=== PATIENT | male | born 1965 | race Caucasian/White ===

== ENCOUNTER 2016-06-17 00:29 | Emergency (ER) | payer OTHER ==
--- NOTE | 2016-06-17 02:32 | ED ORDER SUMMARY ---
..... Patient: EMILY GRIFFIN OrderSheet [facility] VisitID: [id number] [place] [address] 51y, M Registration Date/Time: 06/17/2016 ORDER SHEET Weight: 96.1 kg (stated) Allergies: No Known Drug Allergy GENERAL ORDERS: CT Abd/Pel wo Cont Urgent (01:06/17/2016 Kandis Franklin) (Ack 1:11 AMcQuoid ER Tech1) (1:35 RFay) CBC w Diff Urgent (:06/17/2016 Kandis Franklin) (Ack 1:11 AMcQuoid ER Tech1) (1:22 HSoule) CMP Urgent (:06/17/2016 Kandis Franklin) (Ack 1:11 AMcQuoid ER Tech1) (1:22 HSoule) UA-Culture if indicated Urgent (:06/17/2016 Kandis Franklin) (Ack 1:11 AMcQuoid ER Tech1) (1:22 HSoule) Lipase Urgent (:06/17/2016 Kandis Franklin) (Ack 1:11 AMcQuoid ER Tech1) (1:22 HSoule) Pulse oximeter (:06/17/2016 Kandis Franklin) (Ack 1:11 AMcQuoid ER Tech1) (1:22 HSoule) MEDICATION ORDERS: IV FLUIDS: IV NS : initial bolus 1000 mL (1000 mL/hr), then none - for X1 (NOW) (01:06/17/2016 Kandis Franklin) (Ack 1:10 Vinny R.N.) (1:21 HSoule) Zofran IV 4 mg (NOW) (:06/17/2016 Kandis Franklin) (Ack 1:10 Vinny R.N.) (1:21 HSoule) Morphine IV 4 mg (HIGH ALERT MEDICATION, NOW) (01:08 06/17/2016 Kandis Franklin) (Ack 1:10 Vinny R.N.) (1:21 HSoule) Toradol IV 30 mg (NOW) (01:49 06/17/2016 Kandis Franklin) (2:00 HSoule) ORDER SHEET NOTES: [Electronically signed by Seb Geronimo R.N. (02:40 06/17/2016)] [Electronically signed by Rivera Mac Dr. (09:35 06/23/2016)] [Electronically locked/signed by Seb Geronimo R.N. (02:40 06/17/2016)]
--- NOTE | 2016-06-17 02:32 | ED CLINICAL REPORT ---
Clinical Report - Physicians/Mid Levels [facility] [address] [place] [address] 06/17/2016 0:29 Patient: EMILY GRIFFIN Time Seen: 0100. Arrived- By private vehicle. Historian- patient. HISTORY OF PRESENT ILLNESS Chief Complaint: FLANK PAIN and right. At its maximum, severity described as moderate. When seen in the E.D., severity described as moderate. Modifying factors- worsened by movement. Relieved by rest. It is described as sharp and it is described as located in the right flank and the right lower quadrant. This started past day or two; + hematuria and dysuria and is still present and worsening. It was abrupt in onset and has been intermittent but is not gone now. The patient has had nausea and vomiting. No loss of appetite or diarrhea. No recent travel. Similar symptoms previously: (once or twice. states he thinks they were kidney stones but not totally sure). Recent medical care: Not recently seen/assessed. REVIEW OF SYSTEMS No fever, chest pain or difficulty breathing. All systems otherwise negative, except as recorded above. PAST HISTORY See nurses notes. Medications: Gabapentin Oral (Capsule 300 mg) 1 capsule, 2x a day. Allergies: No Known Drug Allergy. SOCIAL HISTORY Never smoker. No alcohol use or drug use. No recent travel. Is a local resident. FAMILY HISTORY (no known family hx of abdominal problems.). ADDITIONAL NOTES The nursing notes have been reviewed. PHYSICAL EXAM Vital Signs: 06/17/2016 00:37 BP: 137/88. HR: 66. RR: 20. O2 saturation: 100%. Temp: 97.6 F. Pain level now: 10/10. Blood pressure normal. Oxygen saturation normal. Appearance: Alert. Oriented X3. No acute distress. CVS: Normal heart rate and rhythm. Heart sounds normal. Pulses normal. Respiratory: No respiratory distress. Breath sounds normal. Chest nontender. Abdomen: Soft and nontender. Bowel sounds normal. (negative mario's. no tenderness at mcburney's.). Back: Mild CVA tenderness on the right. Skin: Skin warm and dry. Normal skin color. No rash. Normal skin turgor. Extremities: Extremities exhibit normal ROM. No lower extremity edema. LABS, X-RAYS, AND EKG Abdominal CT: right hydro with 5 mm stone at the UVJ. No other acute abnormalities. Study type: abdomen and pelvis. Abdominal CT performed without contrast. The study was independently viewed by me and interpreted by the radiologist. The study was discussed with the radiologist (via fax). Laboratory Tests: UA-Culture if indicated: (MOISÉS: 06/17/2016 01:00) ( MsgRcvd 06/17/2016 01:36) Final results Test Result Flag Units (Reference) URINE COLOR YELLOW URINE APPEARANCE SL CLOUDY URINE GLUCOSE NEGATIVE (NEGATIVE) URINE BILIRUBIN NEGATIVE (NEGATIVE) URINE KETONE NEGATIVE (NEGATIVE) URINE SPECIFIC GRAVITY >= 1.030 (1.010-1.030) URINE PH 6.0 (5.0-8.0) URINE PROTEIN 2+ (NEGATIVE) URINE UROBILINOGEN 1.0 EU/dL (0.2-1.0) URINE NITRITE NEGATIVE (NEGATIVE) URINE BLOOD 3+ (NEGATIVE) URINE LEUK ESTERASE NEGATIVE (NEGATIVE) URINE RBC 75-100 rbc/hpf (0-1) URINE WBC 0-1 wbc/hpf (0-1) URINE EPITHELIAL CELLS 0-1 EPI/hpf (0-5) URINE BACTERIA NONE SEEN (NONE SEEN) URINE COMMENT CULT NOT INDICATED URINE CULTURES ARE SET-UP BASED ON THE FOLLOWING CRITERIA:POSITIVE NITRITEPOSITIVE LEUKOCYTE ESTERASEGREATER THAN 10 WHITE BLOOD CELLSMODERATE (2+) OR GREATER BACTERIA CBC w Diff: (MOISÉS: 06/17/2016 00:45) ( WygRcvd 06/17/2016 01:38) Final results Test Result Flag Units (Reference) WHITE BLOOD COUNT 9.1 K/uL (4.5-11.5) RED BLOOD COUNT 5.43 M/uL (4.50-5.90) HEMOGLOBIN 16.4 gm/dL (13.5-17.5) HEMATOCRIT 48.8 % (41.0-53.0) MEAN CELL VOLUME 90 fL (80-100) MEAN CORPUSCULAR HGB 30 pg (26-34) MEAN CORPUSCULAR HGB CONC 34 g/dL (31-37) RED CELL DISTRIBUTION WIDTH 12.3 % (11.6-14.8) NEUTROPHIL % 67.6 % (50-75) LYMPH % 22.2 L % (25-40) MONO % 4.6 % (3-14) EOSINOPHIL % 4.9 H % (0-4) BASOPHIL % 0.7 % (0-2) CMP: (MOISÉS: 06/17/2016 00:45) ( MsgRcvd 06/17/2016 01:46) Final results Test Result Flag Units (Reference) GLUCOSE 113 H mg/dL (70-110) BUN 16 mg/dL (7-18) CREATININE 1.1 mg/dL (0.6-1.3) Estimated GFR >60 mL/min Estimated GFR- >60 mL/min Note: Persistent reduction over 3 months in eGFR<60 mL/min/1.73 m2 defines CKD. Patients with eGFR values>=60 mL/min/1.73 m2 may also have CKD if evidence ofpersistent proteinuria. Additional information may be foundat www.[email or web address].org. SODIUM 142 mmol/L (136-145) CHLORIDE 106 mmol/L (98-107) CARBON DIOXIDE 29 mmol/L (21-32) TOTAL PROTEIN 7.6 g/dL (6.4-8.2) ALBUMIN 3.9 g/dL (3.3-5.0) BILIRUBIN, TOTAL 0.9 mg/dL (0.0-1.0) ALKALINE PHOSPHATASE 115 U/L (46-116) ALT (SGPT) 52 U/L (12-78) LIPASE 137 U/L (73-393) . PROGRESS AND PROCEDURES Course of Care: The patient is a pleasant 51 yo male with no pertinent past medical history. Differential diagnosis includes stone, pyelo, or acute appy. stone favored given urinary symptoms. Patient agreeable to work up. Patient with no other findings on exam or history. UA + for blood. No UTI. CT shows stone at the UVJ. Pain controlled. Good change of passing spontaneously given location and size. Patient reevaluated and sleeping no acute distress. Discussed with patient and significant other work up, diagnosis, home care, follow up, and return precautions. Recommended speaking with his PCP for urology follow up. DO not fee patient needs to be admitted or require further ED work up/evaluation or admission. CLINICAL IMPRESSION Acute right lower quadrant abdominal pain. 06/17/2016 02:00 BP: 104/68. HR: 57. RR: 20. O2 saturation: 94%. Pain level now: 0/10. Gross hematuria (acute). Blood pressure normal. Oxygen saturation normal. Ureterolithiasis (single stone) in the right ureter. INSTRUCTIONS Warnings: GENERAL WARNINGS: Return or contact your physician immediately if your condition worsens or changes unexpectedly, if not improving as expected, or if other problems arise. SPECIFICALLY, return if you develop pain, fever, vomiting, the inability to keep fluids down, blood in vomitus, blood in diarrhea, fainting or lightheadedness. Your Current Medications: CONTINUE TAKING THE FOLLOWING MEDICATIONS: Gabapentin Oral : Capsule 300 mg, 1 capsule 2x a day. Prescription Medications: Zofran ODT 4 mg: take 1 orally every 8 hours as needed for nausea and vomiting. Dispense ten (10). No refill. Substitution is permissible. Percocet 5 mg/325 mg: take 1 tablet orally every 6 hours as needed for pain. Dispense twenty (20). No refill. Substitution is permissible. Follow-up: Return to the emergency department as needed. Follow up with your doctor in three days. Reason for referral: recheck today's concerns. Summary of care provided to patient via paper. Screening today revealed the patient's blood pressure to be in the normal range. The patient should follow up with a primary care provider for blood pressure management. Understanding of the discharge instructions verbalized by patient. (Electronically signed by Rivera Mac Dr. 06/23/2016 9:35)
--- NOTE | 2016-06-17 02:32 | ED ORDER SUMMARY ---
..... Patient: EMILY GRIFFIN OrderSheet [facility] VisitID: [id number] [place] [address] 51y, M Registration Date/Time: 06/17/2016 ORDER SHEET Weight: 96.1 kg (stated) Allergies: No Known Drug Allergy GENERAL ORDERS: CT Abd/Pel wo Cont Urgent (01:06/17/2016 Kandis Franklin) (Ack 1:11 AMcQuoid ER Tech1) (1:35 RFay) CBC w Diff Urgent (:06/17/2016 Kandis Franklin) (Ack 1:11 AMcQuoid ER Tech1) (1:22 HSoule) CMP Urgent (:06/17/2016 Kandis Franklin) (Ack 1:11 AMcQuoid ER Tech1) (1:22 HSoule) UA-Culture if indicated Urgent (:06/17/2016 Kandis Franklin) (Ack 1:11 AMcQuoid ER Tech1) (1:22 HSoule) Lipase Urgent (:06/17/2016 Kandis Franklin) (Ack 1:11 AMcQuoid ER Tech1) (1:22 HSoule) Pulse oximeter (:06/17/2016 Kandis Franklin) (Ack 1:11 AMcQuoid ER Tech1) (1:22 HSoule) MEDICATION ORDERS: IV FLUIDS: IV NS : initial bolus 1000 mL (1000 mL/hr), then none - for X1 (NOW) (01:06/17/2016 Kandis Franklin) (Ack 1:10 Vinny R.N.) (1:21 HSoule) Zofran IV 4 mg (NOW) (:06/17/2016 Kandis Franklin) (Ack 1:10 Vinny R.N.) (1:21 HSoule) Morphine IV 4 mg (HIGH ALERT MEDICATION, NOW) (01:08 06/17/2016 Kandis Franklin) (Ack 1:10 Vinny R.N.) (1:21 HSoule) Toradol IV 30 mg (NOW) (01:49 06/17/2016 Kandis Franklin) (2:00 HSoule) ORDER SHEET NOTES: [Electronically signed by Seb Geronimo R.N. (02:40 06/17/2016)] [Electronically signed by Rivera Mac Dr. (09:35 06/23/2016)] [Electronically locked/signed by Seb Geronimo R.N. (02:40 06/17/2016)]
--- NOTE | 2016-06-17 02:32 | ED NURSING NOTES ---
Clinical Report - Nurses [facility] [address] [place] [address] 06/17/2016 0:29 Patient: EMILY GRIFFIN TRIAGE Triage time 00:37 Jun 17 2016. Acuity: LEVEL 3. Chief Complaint: PAIN WITH URINATION and (right lower quadrant pain). 00:42 06/17/16. SEPSIS SCREEN: Sepsis Screen: negative. Negative (no infection suspected/documented). HIRAL COMA SCORE: [place] Coma Scale: 15- eyes open spontaneously (4); best verbal response- oriented x 4 (5); best motor response- obeys commands (6). --00:42 Nhung Glass 00:37 06/17/16. BP: 137/88. HR: 66. RR: 20. O2 saturation: 100%. Temp: 97.6 F (oral). Pain level now: 12/31. --00:42 Nhung Glass. Weight: 96.1 kg stated. Height/Length: 71 inches Per Patient. BMI: 29.6. --00:38 Nhung Glass. Medications Gabapentin Oral (Capsule 300 mg) 1 capsule, 2x a day. --00:39 Nhung Glass. Allergies No Known Drug Allergy. --00:40 Nhung Glass. Medication/allergy information source: the patient. --00:42 Nhung Glass. History Arrived by private vehicle. Historian: patient. Accompanied by friend. This started just prior to arrival. ( Patient reports pain that started in his RLQ about ten PM. He reports pain with urination and minimal output. He reports blood in his urine. He denies any history of kidney stones.). PAST MEDICAL HX: Immunizations: up-to-date. SOCIAL HX: Never smoker. No alcohol use or drug use. No infectious disease exposure. ABUSE ASSESSMENT: No report of abuse. FALL RISK ASSESSMENT: Fall risk assessment completed. No fall risk identified. NUTRITIONAL RISK ASSESSMENT: The nutritional risk assessment revealed no deficiencies. FUNCTIONAL ASSESSMENT: Functional assessment: no impairments noted. LEARNING NEEDS ASSESSMENT: The learning needs assessment revealed no barriers. SKIN INTEGRITY ASSESSMENT: Skin integrity risk assessment completed. No skin integrity risk identified. --00:42 Nhung Glass. PROBLEMS: Contact Dermatitis. Immunizations. Depression. Prior Injury, Same Area. Muscle Strain, Upper Extremity. --00:40 Nhung Glass. ADDITIONAL SURGERIES: Shoulder Surgery. --00:40 Nhung Glass. Interventions ID band on patient. To treatment room. --00:42 Nhung Glass. PHYSICAL ASSESSMENT Ambulatory to room. Patient gowned. GENERAL / NEURO / PSYCH: Alert. Oriented X 4. Appears in pain. HEENT: Mucous membranes are pink. RESPIRATORY: Respirations not labored. CVS: Normal heart rate and rhythm. GI / : Abdomen soft. Abdominal tenderness in the right lower quadrant. SKIN: Skin is warm and dry. --00:42 Nhung Glass. NURSING PROGRESS NOTES Pulse oximeter and NIBP monitor placed on patient. Patient gowned. Warming measures: blanket applied. Reassurance given to the patient. Two patient identifiers checked. Call light placed in reach. Side rails up x 1. Bed placed in lowest position. Brakes of bed on. Patient ready for evaluation- chart flagged and ED physician notified. --00:43 Maria Luisa Nhung Patient ID band checked for patient name and birthdate: patient confirmed. Instructions provided to collect clean catch urine and patient verbalized understanding. Clean catch urine collected with return of red-colored clear urine; sample sent to lab for urinalysis and culture. Specimen labeled in the presence of the patient. --00:54 Nhung Glass 01:06 06/17/2016 Site #1 started via IV in the right antecubital space with an 20g angiocath, with aseptic technique and good blood return; one attempt. Blood drawn: rainbow set. Labeled in the presence of the patient and sent to the lab. Saline lock flushed with 10 mL saline (Started by Rj Gomez). --01:21 Nhung Glass 01:21 06/17/2016 Zofran (Ondansetron HCl) IVP 4 mg given over 1 minute(s) via site #1. Allergies verified and confirmed 5 rights. IV patency established. IV site checked: no pain, redness, or swelling. IV flushed thoroughly pre- and post-medication administration. IVP given by RN. --01: Nhung Glass 01:06/17/2016 Morphine IVP 4 mg given over 1 minute(s) via site #1. Allergies verified, confirmed 5 rights and sedative warning given to the patient and patient's family. IV patency established. IV site checked: no pain, redness, or swelling. IV flushed thoroughly pre- and post-medication administration. IVP given by RN. --: Nhung Glass 01:06/17/2016 Started bag #1 1000 mL IV Fluids IV NS (Saline); at 1000 mL/hr over 1 hour(s) via site #1. Allergies verified and confirmed 5 rights. IV patency established. IV site checked: no pain, redness, or swelling. IV flushed thoroughly pre- and post-medication administration. --: Nhung Glass 01:22 06/17/16. BP: 119/79. HR: 57. RR: 20. O2 saturation: 98% on room air. Pain level now: 2/10. --01:22 Nhung Glass 01:28. Patient transported to CT by stretcher with tech. --01:28 McQuoid, Mariela, ER Tech1 Patient transported to CT by stretcher with tech. (:Jun 17 2016). --01:28 Nhung Glass Patient returned from CT by stretcher with tech. (:Jun 17 2016). --01:34 Nhung Glass 02:00 06/17/2016 Toradol IVP 30 mg given over 1 minute(s) via site #1. Allergies verified and confirmed 5 rights. IV patency established. IV site checked: no pain, redness, or swelling. IV flushed thoroughly pre- and post-medication administration. IVP given by RN. --02:00 Nhung Glass 02:00 06/17/16. BP: 104/68. HR: 57. RR: 20. O2 saturation: 94% on room air. Pain level now: 0/10. --02:01 Nhung Glass. DISPOSITION / DISCHARGE 02:37 06/17/2016 Site #1 removed upon discharge. Catheter intact. Bandaid applied. --02:37 Seb Geronimo R.N. Departure time: 02:39. Condition at departure: improved. ( Pt has improved pain control. Pt was sleeping when first entered the room.). No learning barriers present. Discharge instructions provided and reviewed with the patient. Reviewed medication(s) side effects, precautions, dosing and course information. Prescription(s) given to the patient (Percocet zofran). Work note given (2 days). ( Pt was given a strainer and specimen cup. Pt was told not to go to work today.). The patient was discharged home and accompanied by spouse. He left the Emergency Department ambulatory and via private vehicle. Spouse driving. HIRAL COMA SCORE: Hiral Coma Scale: 15- eyes open spontaneously (4); best verbal response- oriented x 4 (5); best motor response- obeys commands (6). --02:39 Seb Geronimo R.N. 02:37 06/17/16. BP: 104/72. HR: 57. RR: 15. O2 saturation: 94%. Pain level now 0/10. --02:39 Seb Geronimo R.N. Locked/Released at 06/17/2016 2:40 by Seb Geronimo R.N.
--- NOTE | 2016-06-17 07:59 | DIAGNOSTIC IMAGING REPORT ---
PROCEDURE: CT ABDOMEN/PELVIS W/O CONTRAST INDICATION: Right-sided pain and hematuria. Initial encounter. TECHNIQUE: Noncontrast axial images were obtained of the entire abdomen and pelvis with sagittal and coronal reformations. COMPARISON: None. FINDINGS: ABDOMEN: 3.5 mm right UVJ calculus with mild right hydroureteronephrosis. Liver, gallbladder, pancreas, spleen, adrenal glands and left kidney are normal. Normal abdominal aorta. Nonspecific bowel gas pattern. Cecum located in the left mid abdomen. Lung bases are clear. Heart size is normal. PELVIS: Appendix not visualized. No pelvic mass, inflammatory changes or free fluid. Bones are unremarkable. IMPRESSION: 1. 3.5 mm right UVJ calculus with mild right hydroureteronephrosis 2. Preliminary results submitted by Dr. Fortune, [facility] radiology. All CT scans at this facility use dose modulation, iterative reconstruction, and/or weight-based dosing when appropriate to reduce radiation dose to as low as reasonably achievable.
--- NOTE | 2016-06-17 07:59 | DIAGNOSTIC IMAGING REPORT ---
PROCEDURE: CT ABDOMEN/PELVIS W/O CONTRAST INDICATION: Right-sided pain and hematuria. Initial encounter. TECHNIQUE: Noncontrast axial images were obtained of the entire abdomen and pelvis with sagittal and coronal reformations. COMPARISON: None. FINDINGS: ABDOMEN: 3.5 mm right UVJ calculus with mild right hydroureteronephrosis. Liver, gallbladder, pancreas, spleen, adrenal glands and left kidney are normal. Normal abdominal aorta. Nonspecific bowel gas pattern. Cecum located in the left mid abdomen. Lung bases are clear. Heart size is normal. PELVIS: Appendix not visualized. No pelvic mass, inflammatory changes or free fluid. Bones are unremarkable. IMPRESSION: 1. 3.5 mm right UVJ calculus with mild right hydroureteronephrosis 2. Preliminary results submitted by Dr. Fortune, [facility] radiology. All CT scans at this facility use dose modulation, iterative reconstruction, and/or weight-based dosing when appropriate to reduce radiation dose to as low as reasonably achievable.
--- NOTE | 2016-06-23 09:35 | ED MAR SUMMARY ---
..... Medication Administration Record [facility] [address] [place] [address] Patient: EMILY GRIFFIN Visit ID: [id number] 51y, M Weight: 96.1 kg Height/Length: 71 in BMI: 29.6 ALLERGIES: No Known Drug Allergy Start 01:06/17/2016 Nhung Glass, Medication Administered: IV NS (SALINE), Dose: IV Fluids over 1 hour(s), Rate: 1000 mL/hr, Dispensed: 1000 mL bag, Site: #1 right AC. Medication Ordered: IV NS : initial bolus 1000 mL (1000 mL/hr), then none - for X1 (NOW). Given 06/17/2016 Nhung Glass, Medication Administered: ZOFRAN [IVP] (ONDANSETRON HCL), Dose: 4 mg IVP over 1 minute(s), Site: #1 right AC. Medication Ordered: Zofran IV 4 mg (NOW). Given 06/17/2016 Nhung Glass, Medication Administered: MORPHINE [IVP], Dose: 4 mg IVP over 1 minute(s), Site: #1 right AC. Medication Ordered: Morphine IV 4 mg (HIGH ALERT MEDICATION, NOW). Given 02:00 06/17/2016 Nhung Glass, Medication Administered: TORADOL [IVP], Dose: 30 mg IVP over 1 minute(s), Site: #1 right AC. Medication Ordered: Toradol IV 30 mg (NOW).
--- NOTE | 2016-06-23 09:35 | ED MAR SUMMARY ---
..... Medication Administration Record [facility] [address] [place] [address] Patient: EMILY GRIFFIN Visit ID: [id number] 51y, M Weight: 96.1 kg Height/Length: 71 in BMI: 29.6 ALLERGIES: No Known Drug Allergy Start 01:06/17/2016 Nhung Glass, Medication Administered: IV NS (SALINE), Dose: IV Fluids over 1 hour(s), Rate: 1000 mL/hr, Dispensed: 1000 mL bag, Site: #1 right AC. Medication Ordered: IV NS : initial bolus 1000 mL (1000 mL/hr), then none - for X1 (NOW). Given 06/17/2016 Nhung Glass, Medication Administered: ZOFRAN [IVP] (ONDANSETRON HCL), Dose: 4 mg IVP over 1 minute(s), Site: #1 right AC. Medication Ordered: Zofran IV 4 mg (NOW). Given 06/17/2016 Nhung Glass, Medication Administered: MORPHINE [IVP], Dose: 4 mg IVP over 1 minute(s), Site: #1 right AC. Medication Ordered: Morphine IV 4 mg (HIGH ALERT MEDICATION, NOW). Given 02:00 06/17/2016 Nhung Glass, Medication Administered: TORADOL [IVP], Dose: 30 mg IVP over 1 minute(s), Site: #1 right AC. Medication Ordered: Toradol IV 30 mg (NOW).
--- NOTE | 2016-06-23 09:35 | ED DISCHARGE INSTRUCTIONS ---
Patient: EMILY GRIFFIN General Instructions [facility] VisitID: [id number] [place] [address] 51y, M Registration Date/Time: 06/17/2016 Acute right lower quadrant abdominal pain. 06/17/2016 02:00 BP: 104/68. HR: 57. RR: 20. O2 saturation: 94%. Pain level now: 0/10. Gross hematuria (acute). Blood pressure normal. Oxygen saturation normal. Ureterolithiasis (single stone) in the right ureter. INSTRUCTIONS Warnings: GENERAL WARNINGS: Return or contact your physician immediately if your condition worsens or changes unexpectedly, if not improving as expected, or if other problems arise. SPECIFICALLY, return if you develop pain, fever, vomiting, the inability to keep fluids down, blood in vomitus, blood in diarrhea, fainting or lightheadedness. Your Current Medications: CONTINUE TAKING THE FOLLOWING MEDICATIONS: Gabapentin Oral : Capsule 300 mg, 1 capsule 2x a day. Prescription Medications: Zofran ODT 4 mg: take 1 orally every 8 hours as needed for nausea and vomiting. Dispense ten (10). No refill. Substitution is permissible. Percocet 5 mg/325 mg: take 1 tablet orally every 6 hours as needed for pain. Dispense twenty (20). No refill. Substitution is permissible. Follow-up: Return to the emergency department as needed. Follow up with your doctor in three days. Reason for referral: recheck today's concerns. Summary of care provided to patient via paper. Screening today revealed the patient's blood pressure to be in the normal range. The patient should follow up with a primary care provider for blood pressure management. Understanding of the discharge instructions verbalized by patient. ADDITIONAL INFORMATION Abdominal Pain,Uncertain Cause [Male] Based on your visit today, the exact cause of your abdominalpain is not clear. Your exam and tests do not indicate a dangerous cause at this time. However, the signs of a serious problem may take more time to appear. Although your evaluation was reassuring today, sometimes early in the course of many conditions, exam and lab tests can appear normal. Therefore, it is important for you to watch for any new symptoms or worsening of your condition. Causes It may not be obvious what caused your symptoms. Pay attention to things that do seem to make your symptoms worse or better and discuss this with your doctor when you follow up. Diagnosis The evaluation of abdominal pain in the emergency department may onlyrequire an exam by the doctor or it may include blood, urine or imaging studies, depending on many factors. Sometimes exams and tests can identify a cause but in many cases, a clear cause is not found. Further testing at follow up visits may help to suggest a clear diagnosis. Home Care Rest as much as possible until your next exam. Try to avoid any medications (unless otherwise directed by your doctor), foods, activities, or other factors that you may have contributed to your symptoms. Try to eat foods that you know that you have tolerated well in the past. Certain diets may be recommended for some conditions that cause abdominal pain. However, since the cause of your symptoms may not be clear, discuss your diet more with your primary care provider or specialist for further recommendations. Eating several small meals per day as opposed to 2 or 3 larger meals may help. Monitor closely for anything that may make your symptoms worse or better. Pay close attention to symptoms below that may indicate worsening of your condition. Follow Up and Precautions See your doctoras instructed or sooneror if your symptoms are not improving.In some cases, you may need more testing. When to Seek Medical Attention Contact your doctor or see medical attention ifany of the following occur: Pain is becoming worse You are unable to take your medications due to excessive vomiting Swelling of the abdomen Fever of 100.4F (38C) or higher, or as directed by your health care provider Blood in vomit or bowel movements (dark red or black color) Jaundice (yellow color of eyes and skin) New onset of weakness, dizziness or fainting New onset of chest, arm, back, neck or jaw pain Abdominal Pain, Possible Appendicitis, Repeat Exam, Male Based on your visit today, the exact cause of your abdominal (stomach) pain is not certain. However, you do have some of the early signs of appendicitis. Early in an appendix infection the symptoms can be similar to a simple "stomach ache" or "stomach flu". Therefore, the diagnosis can be hard to make.Since an appendix infection is a serious condition, it is important to know if this is the cause of your symptoms. WAITING for more time to pass and repeating the exam is the best way to find out whether you have appendicitis. Within the next 12-24 hours the cause of your stomach pain should become clear. It is important for you to watch for any new symptoms or worsening of your condition.(See below). Home Care: Rest until your next exam. No strenuous activities. Eat a diet low in fiber (called a low-residue diet). Foods allowed include refined breads, white rice, fruit and vegetable juices without pulp, tender meats. These foods will pass more easily through the intestine. Avoid whole-grain foods, whole fruits and vegetables, meats, seeds and nuts, fried or fatty foods, dairy, alcohol and spicy foods until your symptoms go away. In some cases, you may be asked not to eat or drink anything until you are re-examined. Return for another exam exactly as directed. Follow Up with your doctor or this facility as directed. [NOTE: If you had an X-ray, CT scan, ultrasound, or EKG (cardiogram), it will be reviewed by a specialist. You will be notified of any new findings that may affect your care.] Return Promptly before your next appointment or contact your doctor if any of the following occur: Pain gets worse or moves to the right lower abdomen New or worsening vomiting or diarrhea Swelling of the abdomen Unable to pass stool for more than three days New fever over 100.4 F (38.0 C), or rising fever Blood in vomit or bowel movements (dark red or black color) Weakness, dizziness or fainting Blood In The Urine Blood in the urine ("hematuria") has many possible causes. If it occurs after an injury (such as a car accident or fall), it is most often a sign of bruising to the kidney or bladder. Common medical causes of blood in the urine include urinary tract infection, kidney stone, inflammation, tumors, or certain other diseases of the kidney or bladder. Menstruation can cause blood to appear in the urine sample, although it is not coming from the urinary tract. If only a trace amount of blood is present, it will show up on the urine test, even though the urine may be yellow and not pink or red. This may occur with any of the above conditions, as well as heavy exercise or high fever. In this case, your doctor may want to repeat the urine test on another day. This will show if the blood is still present. If so, then other tests can be done to find out the cause. Home Care: If your urine does not appear bloody (pink, brown or red) then you do not need to restrict your activity in any way. If you can see blood in your urine, rest and avoid heavy exertion until your next exam. Do not use aspirin or anti-inflammatory medicine like ibuprofen (Motrin, Advil) or naproxen (Naprosyn, Aleve). These thin the blood and may increase bleeding. Follow Up with your doctor or as advised by our staff. If you were injured and had blood in your urine, you should have a repeat urine test in 1-2 days. Contact your doctor or return to this facility for this test. [NOTE: A radiologist will review any X-rays that were taken. We will notify you of any new findings that may affect your care.] Get Prompt Medical Attention if any of the following occur: Bright red blood or blood clots in the urine (if a new symptom) Weakness, dizziness or fainting New groin, abdominal or back pain Fever of 100.4F (38C) or higher, or as directed by your healthcare provider Repeated vomiting Bleeding from nose, gums or easy bruising Ondansetron Oral disintegrating tablet What is this medicine? ONDANSETRON (on JERSON se mo) is used to treat nausea and vomiting caused by chemotherapy. It is also used to prevent or treat nausea and vomiting after surgery. How should I use this medicine? These tablets are made to dissolve in the mouth. Do not try to push the tablet through the foil backing. With dry hands, peel away the foil backing and gently remove the tablet. Place the tablet in the mouth and allow it to dissolve, then swallow. While you may take these tablets with water, it is not necessary to do so. Talk to your shuttle buggy operator regarding the use of this medicine in children. Special care may be needed. What side effects may I notice from receiving this medicine? Side effects that you should report to your doctor or health early breastfeeding care specialist as soon as possible: allergic reactions like skin rash, itching or hives, swelling of the face, lips, or tongue breathing problems dizziness fast or irregular heartbeat feeling faint or lightheaded, falls fever and chills swelling of the hands and feet tightness in the chest Side effects that usually do not require medical attention (report to your doctor or health early breastfeeding care specialist if they continue or are bothersome): constipation or diarrhea headache What may interact with this medicine? Do not take this medicine with any of the following medications: -apomorphine -cisapride -dofetilide -dronedarone -pimozide -thioridazine -ziprasidone This medicine may also interact with the following medications: -carbamazepine -phenytoin -rifampicin -tramadol -other medicines that prolong the QT interval (cause an abnormal heart rhythm) What if I miss a dose? If you miss a dose, take it as soon as you can. If it is almost time for your next dose, take only that dose. Do not take double or extra doses. Where should I keep my medicine? Keep out of the reach of children. Store between 2 and 30 degrees C (36 and 86 degrees F). Throw away any unused medicine after the expiration date. What should I tell my health care provider before I take this medicine? They need to know if you have any of these conditions: heart disease history of irregular heartbeat liver disease low levels of magnesium or potassium in the blood an unusual or allergic reaction to ondansetron, granisetron, other medicines, foods, dyes, or preservatives or trying to get breast-feeding What should I watch for while using this medicine? Check with your doctor or health early breastfeeding care specialist as soon as you can if you have any sign of an allergic reaction. Oxycodone Hydrochloride, Acetaminophen Oral tablet What is this medicine? ACETAMINOPHEN; OXYCODONE (a set a MAL annabella fen; ox i KOE done) is a pain reliever. It is used to treat mild to moderate pain. How should I use this medicine? Take this medicine by mouth with a full glass of water. Follow the directions on the prescription label. Take your medicine at regular intervals. Do not take your medicine more often than directed. Talk to your shuttle buggy operator regarding the use of this medicine in children. Special care may be needed. Patients over 65 years old may have a stronger reaction and need a smaller dose. What side effects may I notice from receiving this medicine? Side effects that you should report to your doctor or health early breastfeeding care specialist as soon as possible: allergic reactions like skin rash, itching or hives, swelling of the face, lips, or tongue breathing difficulties, wheezing confusion light headedness or fainting spells severe stomach pain yellowing of the skin or the whites of the eyes Side effects that usually do not require medical attention (report to your doctor or health early breastfeeding care specialist if they continue or are bothersome): dizziness drowsiness nausea vomiting What may interact with this medicine? alcohol antihistamines barbiturates like amobarbital, butalbital, butabarbital, methohexital, pentobarbital, phenobarbital, thiopental, and secobarbital benztropine drugs for bladder problems like solifenacin, trospium, oxybutynin, tolterodine, hyoscyamine, and methscopolamine drugs for breathing problems like ipratropium and tiotropium drugs for certain stomach or intestine problems like propantheline, homatropine methylbromide, glycopyrrolate, atropine, belladonna, and dicyclomine general anesthetics like etomidate, ketamine, nitrous oxide, propofol, desflurane, enflurane, halothane, isoflurane, and sevoflurane medicines for depression, anxiety, or psychotic disturbances medicines for sleep muscle relaxants naltrexone narcotic medicines (opiates) for pain phenothiazines like perphenazine, thioridazine, chlorpromazine, mesoridazine, fluphenazine, prochlorperazine, promazine, and trifluoperazine scopolamine tramadol trihexyphenidyl What if I miss a dose? If you miss a dose, take it as soon as you can. If it is almost time for your next dose, take only that dose. Do not take double or extra doses. Where should I keep my medicine? Keep out of the reach of children. This medicine can be abused. Keep your medicine in a safe place to protect it from theft. Do not share this medicine with anyone. Selling or giving away this medicine is dangerous and against the law. Store at room temperature between 20 and 25 degrees C (68 and 77 degrees F). Keep container tightly closed. Protect from light. This medicine may cause accidental overdose and if it is taken by other adults, children, or pets. Flush any unused medicine down the toilet to reduce the chance of harm. Do not use the medicine after the expiration date. What should I tell my health care provider before I take this medicine? They need to know if you have any of these conditions: brain tumor Crohn's disease, inflammatory bowel disease, or ulcerative colitis drink more than 3 alcohol containing drinks per day drug abuse or addiction head injury heart or circulation problems kidney disease or problems going to the bathroom liver disease lung disease, asthma, or breathing problems an unusual or allergic reaction to acetaminophen, oxycodone, other opioid analgesics, other medicines, foods, dyes, or preservatives or trying to get breast-feeding What should I watch for while using this medicine? Tell your doctor or health early breastfeeding care specialist if your pain does not go away, if it gets worse, or if you have new or a different type of pain. You may develop tolerance to the medicine. Tolerance means that you will need a higher dose of the medication for pain relief. Tolerance is normal and is expected if you take this medicine for a long time. Do not suddenly stop taking your medicine because you may develop a severe reaction. Your body becomes used to the medicine. This does NOT mean you are addicted. Addiction is a behavior related to getting and using a drug for a non-medical reason. If you have pain, you have a medical reason to take pain medicine. Your doctor will tell you how much medicine to take. If your doctor wants you to stop the medicine, the dose will be slowly lowered over time to avoid any side effects. You may get drowsy or dizzy. Do not drive, use machinery, or do anything that needs mental alertness until you know how this medicine affects you. Do not stand or sit up quickly, especially if you are an older patient. This reduces the risk of dizzy or fainting spells. Alcohol may interfere with the effect of this medicine. Avoid alcoholic drinks. There are different types of narcotic medicines (opiates) for pain. If you take more than one type at the same time, you may have more side effects. Give your health care provider a list of all medicines you use. Your doctor will tell you how much medicine to take. Do not take more medicine than directed. Call emergency for help if you have problems breathing. The medicine will cause constipation. Try to have a bowel movement at least every 2 to 3 days. If you do not have a bowel movement for 3 days, call your doctor or health early breastfeeding care specialist. Do not take Tylenol (acetaminophen) or medicines that have acetaminophen with this medicine. Too much acetaminophen can be very dangerous. Many nonprescription medicines contain acetaminophen. Always read the labels carefully to avoid taking more acetaminophen. You have been given the following additional information: Abdominal Pain, Unknown Cause, (Male) Abdominal Pain, Possible Appendicitis [Male] Hematuria Ondansetron Oral disintegrating tablet Oxycodone Hydrochloride, Acetaminophen Oral tablet (Electronically signed by Rivera Mac Dr. 06/23/2016 9:35)
--- NOTE | 2016-06-23 09:35 | ED MED RECONCILIATION SUMMARY ---
Patient: EMILY GRIFFIN Medication Reconciliation Report [facility] VisitID: [id number] [address] [place] [address] 51y, M Registration Date/Time: 06/17/2016 Weight: 96.1 kg Height/Length: 71 in. BMI: 29.6 ALLERGIES: No Known Drug Allergy The patient's Home Medications are listed below: CONTINUE TAKING THE FOLLOWING MEDICATIONS: Gabapentin Oral (300 mg) 1 capsule, 2x a day The source(s) of the original Home Medication information: patient The following Medications were given to the patient in the Emergency Department: Zofran [IVP] IVP 4 mg, administered: 06/17/2016 1:21:00 AM Morphine [IVP] IVP 4 mg, administered: 06/17/2016 1:21:00 AM IV NS IV Fluids bolus 0, then 1000 mL/hr, administered: 06/17/2016 1:21:00 AM Toradol [IVP] IVP 30 mg, administered: 06/17/2016 2:00:00 AM The following Medications were prescribed to the patient: Zofran ODT 4 mg: take 1 orally every 8 hours as needed for nausea and vomiting. Dispense ten (10). No refill. Substitution is permissible. -- Rivera Mac Dr. Percocet 5 mg/325 mg: take 1 tablet orally every 6 hours as needed for pain. Dispense twenty (20). No refill. Substitution is permissible. -- Rivera Mac Dr.
--- NOTE | 2016-06-23 09:35 | ED MED RECONCILIATION SUMMARY ---
Patient: EMILY GRIFFIN Medication Reconciliation Report [facility] VisitID: [id number] [address] [place] [address] 51y, M Registration Date/Time: 06/17/2016 Weight: 96.1 kg Height/Length: 71 in. BMI: 29.6 ALLERGIES: No Known Drug Allergy The patient's Home Medications are listed below: CONTINUE TAKING THE FOLLOWING MEDICATIONS: Gabapentin Oral (300 mg) 1 capsule, 2x a day The source(s) of the original Home Medication information: patient The following Medications were given to the patient in the Emergency Department: Zofran [IVP] IVP 4 mg, administered: 06/17/2016 1:21:00 AM Morphine [IVP] IVP 4 mg, administered: 06/17/2016 1:21:00 AM IV NS IV Fluids bolus 0, then 1000 mL/hr, administered: 06/17/2016 1:21:00 AM Toradol [IVP] IVP 30 mg, administered: 06/17/2016 2:00:00 AM The following Medications were prescribed to the patient: Zofran ODT 4 mg: take 1 orally every 8 hours as needed for nausea and vomiting. Dispense ten (10). No refill. Substitution is permissible. -- Rivera Mac Dr. Percocet 5 mg/325 mg: take 1 tablet orally every 6 hours as needed for pain. Dispense twenty (20). No refill. Substitution is permissible. -- Rivera Mac Dr.
== END 2016-06-17 02:40 | disposition home or self-care (01) ==
LOC: ED SRH 00:29
DX: N20.1 Calculus of ureter (principal); R31.0 Gross hematuria; R10.31 Right lower quadrant pain
CPT/HCPCS: 90004; 90100; 92235; 95059